=== PATIENT | male | born 1965 | race Caucasian/White ===

== ENCOUNTER 2016-04-02 06:47 | Emergency (ER) | payer OTHER ==
[~2016-04-02] VITALS: Ht 177.8 cm; Wt 74.8 kg
--- NOTE | ~2016-04-02 | EKG ---
[address] [address] [place] [address] ELECTROCARDIOGRAM REPORT Name: JONATAN LESLIE [id number] Admission: 04/02/16 Attend Phys: Discharge: 04/02/16 Date of : 61 Report #: [id number] THIS REPORT FOR: //name// [facility] ED Test Date: 2016-04-02 Test Time: 07:08:27 Pat Name: JONATAN LESLIE Department: Room: Gender: Pond Scaler: nelida : 1965 Requested By: Valarie Ortega Order Number: [id number] MD: Thompson Schroeder Measurements Intervals [place] Rate: 70 P: 77 W[place]: 153 QRS: 7 QRSD: 90 T: 104 QT: 432 QTc: 467 Interpretive Statements Sinus rhythm Abnormal T, consider ischemia, lateral leads Baseline wander in lead(s) V1 Compared to ECG 02/18/2016 13:44:59 Ventricular premature complex(es) no longer present Electronically Signed On 04-02-2016 8:04:58 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
[~2016-04-02 06:47] MED LIST: ADVAIR HFA 230M12 GM INH; ADVAIR HFA115 MCG/21 INH; ALBUTEROL MDI INH; ALBUTEROL2.5 MG/0.5 INH; ALBUTEROL2.5 MG/31 INH; ASPIR 8181 MG PO; BENAZEPRIL HCL40 MG PO; CARVEDILOL25 MG PO; CHLORTHALIDONE25 MG PO; CLONIDINE; CLONIDINE HCL0.3 M2 PO; CLONIDINE0.1 PO; DOXYCYCLINE 10100 MG PO; HYTRIN 2MG CAPSU2 M1 PO; HYTRIN 2MG CAPSU2 MG PO; LASIX 40 MG TAB40 M2 PO; LEVAQUIN 500 M500 M2 PO; LEXAPRO 10 MG T10 M1 PO; LISINOPRIL; LISINOPRIL10 MG PO; LISINOPRIL20 MG PO; MUCINEX TA600 MG/TA2 PO; NORVASC5 MG PO; PREDNISONE 20 M20 M1 PO; PREDNISONE 20 M20 MG PO; PREDNISONE50 MG PO; PROAIR HFA8.5 GM IH; PROAIR HFA8.5 GM INH; TYLENOL325 MG PO; VENTOLIN HFA 1818 GM INH; VENTOLIN17 GM INH; ZESTORETIC 20-1 EAC1 PO; ZESTORETIC 20-1 EAC2 PO; ZESTRIL20 MG PO; ZOFRAN4 MG PO
[2016-04-02 07:07] LABS: BASOPHILS 1.1 % (0.0-2.0); EOSINOPHILS 10.3 % (0.0-3.0); HEMATOCRIT 46.8 % (42.0-52.0); LYMPHOCYTES 23.1 % (24.0-44.0); MANUAL DIFF NO; MCH 27.7 pg (26.0-34.0); MCHC 34.3 % (28.0-37.0); MCV 80.9 fL (80.0-100.0); MONOCYTES 5.7 % (1.0-8.0); PLATELET COUNT 227 thou/uL (150-400); POLYS 59.8 % (36.0-66.0); RBC 5.79 mil/uL (4.50-6.00); RDW 13.8 % (10.5-14.5); WBC 11.8 thou/uL (4.0-11.0)
[2016-04-02 07:14] LABS: CALCIUM 9.3 mg/dL (8.5-10.1); CREATININE 1.1 mg/dL (0.6-1.3); POTASSIUM 3.8 mmol/L (3.5-5.1)
[2016-04-02] MEDS ORDERED: LASIX 40 MG TAB40 M2 PO (07:43)
[2016-04-02] MEDS ORDERED: LISINOPRIL10 MG PO (07:43)
[2016-05-09] MEDS ORDERED: CVS BUFFERED A325 MG PO (10:00)
[2016-05-09] MEDS ORDERED: LISINOPRIL40 MG PO (10:00)
[2016-05-09] MEDS ORDERED: VENTOLIN HFA 1818 GM INH (10:50)
[2016-05-09] MEDS ORDERED: CARVEDILOL25 MG PO (10:50)
== END 2016-04-02 08:00 | disposition home or self-care (01) ==
LOC: ER 06:47
PROVIDERS: Emergency Medicine
DX: I16.0 Hypertensive urgency (principal); J45.909 Unspecified asthma, uncomplicated; J44.9 Chronic obstructive pulmonary disease, unspecified; F10.99 Alcohol use, unspecified with unspecified alcohol-induced disorder

== ENCOUNTER 2016-04-07 19:17 | Emergency (ER) | payer OTHER ==
[~2016-04-07] VITALS: Ht 177.8 cm; Wt 74.8 kg
--- NOTE | ~2016-04-07 | EKG ---
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 : 1965 Requested By: Selene Mai Order Number: [id number] MD: Thompson Schroeder Measurements Intervals [place] Rate: 65 P: 47 [place]: 157 QRS: -8 QRSD: 87 T: 143 QT: 415 QTc: 432 Interpretive Statements Sinus rhythm Atrial premature complex Probable anteroseptal infarct, old Abnrm T, consider ischemia, lateral lds Compared to ECG 04/02/2016 07:08:27 Atrial premature complex(es) now present Septal Q waves are more prominent Electronically Signed On 04-08-2016 8:06:57 [employer]OR [employer] by Thompson Schroeder [email or web address] <ELECTRONICALLY SIGNED> By: Thompson Schroeder MD, [facility] 04/08/16 [id number] Thompson Schroeder MD, [facility] /EPI
[2016-04-07 19:45] LABS: ABSOLUTE NEUTROPHILS 6.6 thou/uL (1.4-8.2); BASOPHILS 1.1 % (0.0-2.0); EOSINOPHILS 12.9 % (0.0-3.0); HEMATOCRIT 43.1 % (42.0-52.0); HEMOGLOBIN 14.9 gm/dL (14.0-18.0); LYMPHOCYTES 21.6 % (24.0-44.0); MANUAL DIFF NO; MCH 27.7 pg (26.0-34.0); MCHC 34.6 % (28.0-37.0); MCV 80.2 fL (80.0-100.0); MONOCYTES 5.6 % (1.0-8.0); PLATELET COUNT 235 thou/uL (150-400); POLYS 58.8 % (36.0-66.0); RBC 5.37 mil/uL (4.50-6.00); RDW 13.8 % (10.5-14.5); WBC 11.2 thou/uL (4.0-11.0)
[2016-04-07 19:51] LABS: CALCIUM 8.5 mg/dL (8.5-10.1); CREATININE 1.2 mg/dL (0.6-1.3); POTASSIUM 3.7 mmol/L (3.5-5.1)
[2016-04-07] MEDS ORDERED: ALBUTEROL2.5 MG/0.5 INH (20:56)
[2016-04-07] MEDS ORDERED: AMOXICILLIN 50500 M1 PO (20:56)
[2016-04-07] MEDS ORDERED: PREDNISONE 20 M20 MG PO (20:56)
[2016-05-09] MEDS ORDERED: CVS BUFFERED A325 MG PO (10:00)
[2016-05-09] MEDS ORDERED: LISINOPRIL40 MG PO (10:00)
[2016-05-09] MEDS ORDERED: VENTOLIN HFA 1818 GM INH (10:50)
[2016-05-09] MEDS ORDERED: CARVEDILOL25 MG PO (10:50)
== END 2016-04-07 21:12 | disposition home or self-care (01) ==
LOC: ER 19:17
PROVIDERS: Emergency Medicine
DX: J42 Unspecified chronic bronchitis (principal); I16.0 Hypertensive urgency; I50.30 Unspecified diastolic (congestive) heart failure; I11.0 Hypertensive heart disease with heart failure; J45.909 Unspecified asthma, uncomplicated; F12.10 Cannabis abuse, uncomplicated